=== PATIENT | female | born 1935 | race Caucasian/White ===

== ENCOUNTER 2021-01-06 19:40 | Emergency (ER) | payer BC, OTHER ==
[~2021-01-06] VITALS: Ht 154.9 cm; Wt 59.9 kg
[2021-01-06] MEDS ORDERED: KETOROLAC TROMETHAMINE 30 MG INJ IM ONE (21:15)
--- NOTE | 2021-01-06 21:23 | NUR ---
PT IS IN ROOM #1A. DR MAN EVALUATED THE PT.
[2021-01-06] MEDS ORDERED: KETOROLAC TROMETHAMINE 30 MG INJ ONE (21:27)
[2021-01-06 21:34] LABS: HEMATOCRIT 38.2 % (31.2-41.9); MEAN CORPUSCULAR HEMOGLOBIN 30.2 uug (24.7-32.8); MEAN CORPUSCULAR VOLUME 91.2 fL (75.5-95.3); PLATELET COUNT (AUTO) 174 K/uL (179-408)
[2021-01-06 21:44] LABS: BILIRUBIN,TOTAL 0.9 mg/dL (0.2-1.0); CREATININE 1.2 mg/dL (0.6-1.3); TOTAL PROTEIN, SERUM 6.9 g/dL (6.4-8.2)
--- NOTE | 2021-01-06 23:39 | NUR ---
REPORT GIVEN TO [employer] LEE LOOMIS.
--- NOTE | 2021-01-07 01:51 | NUR ---
Sarahi from [facility] transfer [facility] called back with transfer info. Patient will be going to [facility]. Accepting MD is Dr Freitas.
--- NOTE | 2021-01-07 01:53 | NUR ---
Called for report number for [facility] is .
--- NOTE | 2021-01-07 02:40 | NUR ---
Gave SBAR report to Bernice muniz [facility].
--- NOTE | 2021-01-07 03:51 | NUR ---
Gave [facility] ambulance [facility] SBAR report.
== END 2021-01-07 04:10 | disposition short-term general hospital (02) ==
LOC: ER 19:43
DX: S32.512A Fracture of superior rim of left pubis, initial encounter for closed fracture (principal); S32.592A Other specified fracture of left pubis, initial encounter for closed fracture; S32.10XA Unspecified fracture of sacrum, initial encounter for closed fracture; W01.0XXA Fall on same level from slipping, tripping and stumbling without subsequent striking against object, initial encounter; Y93.E9 Activity, other interior property and clothing maintenance; Y92.030 Kitchen in apartment as the place of occurrence of the external cause; E11.9 Type 2 diabetes mellitus without complications; Z20.822 Contact with and (suspected) exposure to COVID-19
CPT/HCPCS: 36415; 72192; 73502; 80053; 82962; 85025; 87426; 96372; 99284; J1885; A4663